=== PATIENT | female | born 1990 | race African-American/Black ===

== ENCOUNTER 2023-02-28 23:57 | Emergency (ER) | payer MEDICAID ==
[~2023-02-28] VITALS: Ht 165.1 cm; Wt 59.0 kg
[2023-03-01 01:46] VITALS: BP 135/72; PULSE 69; RESP 16; TEMP 98.2; O2SAT 99
[2023-03-01] MEDS ORDERED: ACET-2708 MT (11:13)
== END 2023-03-01 03:23 | disposition left against medical advice (07) ==
LOC: ER 23:57
DX: Z53.21 Procedure and treatment not carried out due to patient leaving prior to being seen by health care provider (principal)
CPT/HCPCS: 99281; Z7610

== ENCOUNTER 2023-03-01 08:05 | Emergency (ER) | payer MEDICAID ==
[~2023-03-01] VITALS: Ht 165.1 cm; Wt 59.0 kg
[2023-03-01 08:15] VITALS: PULSE 98; O2SAT 99
[2023-03-01 09:30] VITALS: BP 137/70; RESP 18; TEMP 98.6
[2023-03-01] MEDS ORDERED: LIDOCAINE 5% PATCH TOP ONE (09:30)
[2023-03-01] MEDS ORDERED: ACETAMINOPHEN 325MG TABLET PO ONE (09:30)
[2023-03-01] MEDS ORDERED: ACET-2708 MT (11:13)
== END 2023-03-01 11:35 | disposition home or self-care (01) ==
LOC: ER 08:24
DX: M25.522 Pain in left elbow (principal); M25.562 Pain in left knee; M25.552 Pain in left hip
CPT/HCPCS: 73080; 73502; 73562; 81025; 99284